=== PATIENT | male | born 1985 | race Caucasian/White ===

== ENCOUNTER 2017-03-16 17:38 | Inpatient (IN) | payer OTHER ==
[~2017-03-16] VITALS: Ht 180.3 cm; Wt 134.3 kg
[~2017-03-16 17:38] MED LIST: ALBU1.25 NEB
[2017-03-16] MEDS ORDERED: SODIUM CHLORIDE FLUSH 10ML SYR IVF ONE (18:00)
[2017-03-16] MEDS ORDERED: SODIUM CHLORIDE 0.9% 1,000ML IVBOLUS ONE (18:00)
[2017-03-16 18:28] LABS: ASPARTATE AMINO TRANSFERASE 14 U/L (15-37); BLOOD UREA NITROGEN 9 mg/dL (7-18); HEMATOCRIT 48.4 % (39.2-51.8); HEMOGLOBIN 16.4 g/dL (13.7-18.0); WHITE BLOOD COUNT 10.6 x10^3/uL (3.4-10)
[2017-03-16] MEDS ORDERED: MECLIZINE CHEWABLE 25 MG TAB PO ONE (18:30)
[2017-03-16] MEDS ORDERED: MECLIZINE CHEWABLE 25 MG TAB ONE (18:47)
[2017-03-16] MEDS ORDERED: GADOBUTROL 10 MMOL/10 ML PFS ONE (19:28)
[2017-03-16] MEDS ORDERED: ONDANSETRON 2MG/ML, 2ML IVPush ONE (20:00)
[2017-03-16] MEDS ORDERED: MORPHINE SULFATE 4 MG/ML, 1ML IVPush PRN (20:00)
[2017-03-16] MEDS ORDERED: ASPIRIN 81 MG TABLET CHEW PO ONE (20:30)
[2017-03-16] MEDS ORDERED: SODIUM CHLORIDE FLUSH 10ML SYR IVF PRN (20:30)
[2017-03-16] MEDS ORDERED: ASPIRIN 81 MG TABLET CHEW ONE (20:33)
[2017-03-16] MEDS ORDERED: SENNA/DOCUSATE TABLET PO PRN (21:00)
[2017-03-16] MEDS ORDERED: BISACODYL 10 MG SUPP PR PRN (21:00)
[2017-03-16] MEDS ORDERED: ACETAMINOPHEN 650 MG/20.3 ML UDC PO PRN (21:00)
[2017-03-16] MEDS ORDERED: OMNIPAQUE 350 MG/ML, 100ML BOTTLE ONE (21:29)
[2017-03-16] MEDS ORDERED: MECLIZINE CHEWABLE 25 MG TAB PO PRN (21:30)
[2017-03-16] MEDS ORDERED: NICOTINE 14MG/24 HR PATCH.TD24 ONE (21:48)
[2017-03-16] MEDS ORDERED: ONDANSETRON 2MG/ML, 2ML ONE (21:50)
[2017-03-16] MEDS: NICOTINE 14MG/24 HR PATCH.TD24 TD SCH (21:52)
[2017-03-17] MEDS: SIMVASTATIN 20 MG TABLET PO SCH ×2 (00:06→22:00)
[2017-03-17] MEDS ORDERED: ACETAMINOPHEN 325 MG TABLET ONE (00:31)
[2017-03-17] MEDS: ACETAMINOPHEN 325 MG TABLET PO PRN ×3 (01:00→14:41)
[2017-03-17 01:39] VITALS: BP 121/75
[2017-03-17] MEDS ORDERED: ALBUTEROL SULFATE 2.5 MG/3 ML ONE (02:21)
[2017-03-17] MEDS: ALBUTEROL SULFATE 2.5 MG/3 ML NPPB SCH ×3 (02:26→19:57)
[2017-03-17 08:12] VITALS: BP 147/92
[2017-03-17] MEDS ORDERED: ASPIRIN 81 MG TABLET EC PO SCH (09:00)
[2017-03-17 14:19] VITALS: BP 126/83
[2017-03-17] MEDS ORDERED: HYDROcodone/APAP 5/325 TABLET PO PRN (18:00)
[2017-03-17 18:37] VITALS: BP 163/84
[2017-03-17] MEDS ORDERED: ENALAPRILAT 1.25 MG/ML, 2ML IV PRN (19:00)
[2017-03-17 20:00] VITALS: BP 138/82
[2017-03-17] MEDS: BUTALB/APAP/CAFFEINE 50MG/325MG/40MG PO PRN (20:04)
[2017-03-17] MEDS: NICOTINE 14MG/24 HR PATCH.TD24 TD SCH (22:01)
[2017-03-18] MEDS: BUTALB/APAP/CAFFEINE 50MG/325MG/40MG PO PRN ×3 (00:56→12:19)
[2017-03-18 02:00] VITALS: BP 132/83
[2017-03-18] MEDS ORDERED: ASPIRIN 81 MG TABLET EC PO SCH (06:00)
[2017-03-18] MEDS: ALBUTEROL SULFATE 2.5 MG/3 ML NPPB SCH (07:48)
[2017-03-18 09:22] VITALS: BP 127/79
[2017-03-18] MEDS ORDERED: ASPI-621 PO (11:20)
[2017-03-18] MEDS ORDERED: SIMV20TA3 PO (11:20)
== END 2017-03-18 12:45 | disposition home or self-care (01) | DRG 64 ==
LOC: ED 21:00 → EDIP 21:05 → 5SO 23:35 → 4EST 03-17 18:12 → DCLOUNGE 03-18 12:30
PROVIDERS: ADMIT Internal Medicine; ATTEND Internal Medicine
DX: I63.9 Cerebral infarction, unspecified (principal); G93.5 Compression of brain; Z68.41 Body mass index [BMI] 40.0-44.9, adult; I10 Essential (primary) hypertension; E66.9 Obesity, unspecified; F17.210 Nicotine dependence, cigarettes, uncomplicated; F12.10 Cannabis abuse, uncomplicated; J45.909 Unspecified asthma, uncomplicated; Z79.82 Long term (current) use of aspirin; Z81.8 Family history of other mental and behavioral disorders; Z82.49 Family history of ischemic heart disease and other diseases of the circulatory system; Z83.3 Family history of diabetes mellitus
CPT/HCPCS: 36415; 70450; 70498; 70553; 71010; 80053; 80061; 85025; 93005; 93306; 94640; 96361; 96374; A9585; J2405; J7613; Q9967; J7030